=== PATIENT | male | born 1975 | race African-American/Black ===

== ENCOUNTER 2017-07-21 19:19 | Emergency (ER) | payer OTHER ==
[~2017-07-21] VITALS: Ht 170.2 cm; Wt 90.7 kg
[2017-07-21] MEDS ORDERED: NAPR500T8 PO (20:17)
[2017-07-21] MEDS ORDERED: CYCL10TA2 PO (20:17)
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
[2017-07-21 20:28] VITALS: BP 171/103
== END 2017-07-21 20:32 | disposition home or self-care (01) ==
LOC: ER 19:19
DX: M54.5 Low back pain (principal); I10 Essential (primary) hypertension; V89.2XXA Person injured in unspecified motor-vehicle accident, traffic, initial encounter; Y93.89 Activity, other specified; Y99.8 Other external cause status; Y92.89 Other specified places as the place of occurrence of the external cause
CPT/HCPCS: 99283